=== PATIENT | male | born 1950 | race Caucasian/White ===

== ENCOUNTER 2019-01-13 05:44 | Inpatient (IN) ==
[2019-01-07 13:09] LABS: Basophils # (Auto) 0 K/mcL (0.0-0.3); Basophils % (Auto) 0.4 % (0.0-2.0); Eosinophils # (Auto) 0.4 K/mcL (0.0-0.7); Eosinophils % (Auto) 4.5 % (0.0-7.0); Granulocytes % (Auto) 66.6 % (38.0-78.0); Lymphocytes # (Auto) 1.6 K/mcL (1.5-4.8); Lymphocytes % (Auto) 19.2 % (15.5-49.0); Mean Cell Volume 85.8 fL (80.0-100.0); Monocytes # (Auto) 0.8 K/mcL (0.1-0.9); Monocytes % (Auto) 9.3 % (1.0-12.0); Platelet Count 273 K/mcL (140-440); RBC 4.82 M/mcL (4.50-5.90); Red Cell Distribution Width 13.1 % (11.5-14.5)
[2019-01-07 13:14] LABS: Appearance,Urine CLEAR; Bacteria,Urine 0 /hpf (0); Bilirubin,Urine NEG (NEG); Color,Urine STRAW; Glucose,Urine (UA) >=500 mg/dL (NEG); Leukocyte Esterase,Urine NEG /uL (NEG); Protein,Urine NEG (NEG); Specific Gravity,Urine 1.012 (1.000-1.035); Urine Blood NEG mg/dL (<0.03); Urine RBC < 1 /hpf (0-1); Urine Squamous Epithelial Cell 0 /hpf (0-4); Urine WBC 0 /hpf (0-4); Urobilinogen,Urine NEG (NEG)
[2019-01-07 14:06] LABS: Blood Urea Nitrogen 17 mg/dl (8-23)
[2019-01-07 14:18] LABS: Estimated Average Glucose(eAG) 140 mg/dL; Hemoglobin A1C 6.5 % HGB (4.0-6.0)
[2019-01-13] MEDS ORDERED: CELECOXIB 200 MG CAPSULE PO SCH (06:00)
[2019-01-13] MEDS ORDERED: SCOPOLAMINE 1 PATCH PATCH TOPICAL ONE (06:00)
[2019-01-13] MEDS ORDERED: PREGABALIN 75 MG CAPSULE PO SCH (06:00)
[2019-01-13] MEDS ORDERED: ACETAMINOPHEN 500 MG TABLET PO SCH (06:00)
[2019-01-13] MEDS ORDERED: 0.9 % SODIUM CHLORIDE 9 ML, KETOROLAC 30 MG, ROPIVACAINE HCL/PF 49.5 ML, EPINEPHrine 0.... IJ SCH (06:00)
[2019-01-13] MEDS ORDERED: ceFAZolin 2 GM in DEXTROSE 5% IN WATER 50 ML IV SCH (06:00)
[2019-01-13] MEDS ORDERED: oxyCODONE 10 MG TAB.ER.12H PO SCH (06:00)
[2019-01-13] MEDS ORDERED: TRANEXAMIC ACID 1,000 MG/10 ML VIAL IV ONE ×2 (10:35→12:47)
[2019-01-13] MEDS ORDERED: ONDANSETRON 4 MG/2 ML VIAL IV ONE (10:35)
[2019-01-13] MEDS ORDERED: ePHEDrine 50 MG/ML AMPUL IV ONE (10:35)
[2019-01-13] MEDS ORDERED: MIDAZOLAM 5 MG/5 ML VIAL IV ONE (10:35)
[2019-01-13] MEDS ORDERED: LIDOCAINE HCL/PF 100 MG/5 ML SYRINGE IV ONE (10:35)
[2019-01-13] MEDS ORDERED: DEXAMETHASONE 10 MG/ML VIAL IV ONE (10:35)
[2019-01-13] MEDS ORDERED: ROPIVACAINE HCL/PF 20 ML VIAL IJ ONE (10:35)
[2019-01-13] MEDS ORDERED: PROPOFOL 200 MG/20 ML VIAL IV ONE (10:35)
[2019-01-13] MEDS ORDERED: GENTAMICIN SULFATE 800 MG/20 ML VIAL IR ONE (11:36)
[2019-01-13] MEDS ORDERED: LACTATED RINGERS 1,000 ML IV SCH (12:15)
[2019-01-13] MEDS ORDERED: PROMETHAZINE 25 MG/ML VIAL IV PRN (12:15)
[2019-01-13] MEDS ORDERED: MEPERIDINE 25 MG/ML SYRINGE IV PRN (12:15)
[2019-01-13] MEDS ORDERED: diphenhydrAMINE 50 MG/ML VIAL IV PRN (12:15)
[2019-01-13] MEDS ORDERED: fentaNYL 100 MCG/2 ML VIAL IV PRN (12:15)
[2019-01-13] MEDS ORDERED: IPRATROPIUM/ALBUTEROL 3 ML AMPUL.NEB NEB PRN (12:15)
[2019-01-13] MEDS ORDERED: FLUMAZENIL 0.1 MG/ML ML IV PRN (12:15)
[2019-01-13] MEDS ORDERED: LACTATED RINGERS 250 ML IV PRN (12:15)
[2019-01-13] MEDS ORDERED: NALOXONE HCL 0.4 MG/ML VIAL IV PRN (12:15)
[2019-01-13] MEDS ORDERED: ONDANSETRON 4 MG/2 ML VIAL IV PRN ×2 (12:15→12:47)
[2019-01-13] MEDS ORDERED: BENZOCAINE/MENTHOL 1 LOZENGE PO PRN (12:47)
[2019-01-13] MEDS ORDERED: BISACODYL 10 MG SUPP.RECT PR PRN (12:47)
[2019-01-13] MEDS ORDERED: FLEETS ADULT ENEMA PR PRN (12:47)
[2019-01-13] MEDS ORDERED: ACETAMINOPHEN 325 MG TABLET PO PRN (12:47)
[2019-01-13] MEDS ORDERED: HYDROmorphone 2 MG/ML VIAL IV PRN (12:47)
[2019-01-13] MEDS ORDERED: MAGNESIUM HYDROXIDE 30 ML ORAL.SUSP PO PRN (12:47)
[2019-01-13] MEDS ORDERED: POLYETHYLENE GLYCOL 3350 17 GM PACKET PO PRN (12:47)
[2019-01-13] MEDS ORDERED: TEMAZEPAM 15 MG CAPSULE PO PRN (12:47)
--- NOTE | 2019-01-13 12:47 | Brief Operative Note ---
Date of procedure: 01/13/19 Pre-op diagnosis: Right knee fail attune tka 2016 Post-op diagnosis: same Procedure: right tka complete revision all coomp Grafts/Implants: Yes Anesthesia: LILLYA Surgeon: Guille Bradshaw Loan Consultant: Inocencio Espinoza Estimated blood loss (cc): 100 Tourniquet Time (Minutes): 86 Specimens Removed/Pathology: none sent Condition: stable Disposition: PACU
[2019-01-13] MEDS ORDERED: ALBUTEROL SULFATE 1 PUFF INHALER INH PRN (12:54)
[2019-01-13] MEDS: 0.45 % SODIUM CHLORIDE 1,000 ML IV SCH (13:47)
[2019-01-13] MEDS: 0.9 % SODIUM CHLORIDE 10 ML SYRINGE IV SCH ×2 (14:15→22:12)
--- NOTE | 2019-01-13 14:57 | XRay Report ---
CLINICAL INFORMATION: Post-Op Total Knee COMPARISON: Preoperative x-rays 09/25/2013 FINDINGS: Longstem total knee prostheses is anatomically aligned. No osseous abnormality. Soft tissue swelling - as expected IMPRESSION: Negative Interpreted and Authenticated by: Mailck Peguero 01/13/19
--- NOTE | 2019-01-13 16:38 | Operative Note ---
DATE OF OPERATION: 01/13/2019 PREOPERATIVE DIAGNOSIS: Right knee Attune knee that had loosened and was unstable. POSTOPERATIVE DIAGNOSIS: Right knee Attune knee that had loosened and was unstable. PROCEDURE: Right revision of Attune knee of the tibial base plate and femoral component. All components were revised to [place] components. Complete revision of Attune to a [place] knee. SURGEON: Guille Bradshaw M.D. [place] SYSTEMS ENGINEER: Inocencio Espinoza PA-C. ANESTHESIA: General LMA anesthesia. COMPLICATIONS: None. ESTIMATED BLOOD LOSS: About 100 mL. COMPLICATIONS: None. TOURNIQUET TIME: 86 minutes. BLOOD PRODUCTS GIVEN: None. PATHOLOGY: We did send tissue for fresh frozen which revealed only 1 white blood cell per high power field. We cemented the component with antibiotic-impregnated cement. DESCRIPTION OF PROCEDURE: The patient was brought to the operating room and put to sleep with general LMA anesthesia. Once asleep, the patient had the right leg sterilely prepped and draped in the usual sterile fashion. A timeout was performed, and we confirmed this as the operative site for right knee revision from an Attune to a Manuel knee. We did this by initials, consent form and x-rays. Once done, we placed Ioban over the skin, exsanguinated the leg to 250 pounds of pressure and made a midline incision. We exposed the joint and incised through his prior scar, identified the Attune knee. The patella seemed to track well without purulence. We took tissue and sent it for high powered field, which returned with only 1 white blood cell. We then removed the femoral component and the tibial trial. The rotating platform poly was removed by cutting the polyethylene into the baseplate. The baseplate was removed with some difficulty, but it came out with no cement attached, seemed to be de-bonded. There was no cement on the posterior flanges of the femoral component which could have represented looseness as well. Both these components were removed. Very little bone was sacrificed. We then placed an intramedullary guide elham down the tibia after removing the bony cement that had been placed. This was reamed up for a size 13 stem, and we trialed and tapped into place the tibial baseplate with external rotation appropriate for his anatomy. The femoral component was then cut using the epicondyle axis. External rotation was accomplished fairly easily. We placed +5 wedges distally, +5 wedges posteriorly. We increased the size to a size 7 femoral component, which seemed equally balanced in flexion-extension. With this, we were able to achieve perfect alignment and a constrained liner was placed. This felt very nice, very straight, and gained full motion though this was slightly tighter than what he started with. We cemented into place the long stemmed component. The femoral component had a rotational +6 offset for alignment, and a +5 distal augment, and a +5 posterior augment both medially and laterally. This was cemented into place with a size 14 stem. This seemed to fit very nicely. We then trialed the poly. The appropriate poly was placed, and it was a constrained poly. The patella tracked perfectly. We irrigated thoroughly and then removed any excess cement and closed the midvastus approach with #1 Stratafix x2. Everything fit very nicely. We took the knee through range of motion. The skin was closed with 2-0 Vicryl and adhesive closure. RBH:celeste Job ID: [id number] Doc ID: [id number] Guille Bradshaw MD
[2019-01-13] MEDS: KETOROLAC 15 MG/ML VIAL IV SCH ×2 (18:12→23:57)
[2019-01-13] MEDS: metFORMIN 500 MG TAB.XL.24H PO SCH (18:12)
[2019-01-13] MEDS: ceFAZolin 1 GM VIAL IV SCH (18:40)
[2019-01-13] MEDS: Budesonide/Formoterol Fumarate [Symbicort] 160-4.5 mcg Inhaler INH SCH (20:23)
[2019-01-13] MEDS: TAMSULOSIN 0.4 MG CAPSULE PO SCH (20:23)
[2019-01-13] MEDS: ASPIRIN 325 MG ENTERIC COATED TABLET PO SCH (20:23)
[2019-01-13] MEDS: oxyCODONE/APAP 5/325MG TABLET PO PRN (20:23)
[2019-01-13] MEDS ORDERED: DOCUSATE SODIUM 100 MG CAPSULE PO SCH (21:00)
[2019-01-13] MEDS ORDERED: SENNOSIDES 1 TABLET PO SCH (21:00)
[2019-01-13] MEDS ORDERED: MONTELUKAST 10 MG TABLET PO SCH (21:00)
[2019-01-13] MEDS ORDERED: SIMVASTATIN 20 MG TABLET PO SCH (21:00)
[2019-01-14] MEDS: 0.45 % SODIUM CHLORIDE 1,000 ML IV SCH (00:05)
[2019-01-14] MEDS: ceFAZolin 1 GM VIAL IV SCH (02:29)
[2019-01-14] MEDS: oxyCODONE/APAP 5/325MG TABLET PO PRN ×2 (02:29→08:48)
[2019-01-14] MEDS: KETOROLAC 15 MG/ML VIAL IV SCH (05:36)
[2019-01-14] MEDS: 0.9 % SODIUM CHLORIDE 10 ML SYRINGE IV SCH (05:36)
--- NOTE | 2019-01-14 07:46 | Orthopedic Progress Note ---
Subjective Patient information: Note initiated : 01/14/19 at 7:45 am Service Date, if different from initiated Date: [] Patient: Armen Gonzalez 68 y/o M admitted on 01/13/19 for Right Knee Revision to Longer Stem, Replacement of. Chief Complaint: [Pt is stable this morning on post operative day 1 without any significant concerns or complaints. Patients vital signs have remained stable. Patients dressing is dry and is grossly intact from a neurovascular and motor standpoint. Patients 10 point ROS is otherwise negative. ] Objective Vital signs: Vital Signs Temp Pulse Resp BP BP Pulse Ox 01/14/19 07:32 98.0 F 59 L 14 111/65 96 01/14/19 02:43 94 01/14/19 02:36 97.8 F 75 14 125/66 94 01/14/19 00:00 92 01/13/19 23:54 98.1 F 67 14 128/63 92 01/13/19 20:00 94 01/13/19 19:29 97.3 F 90 22 123/71 92 01/13/19 15:26 111/67 92 01/13/19 14:56 109/66 92 01/13/19 14:26 110/66 90 01/13/19 14:11 115/69 90 01/13/19 13:57 120/72 92 01/13/19 13:30 97.8 F 86 17 129/77 97 01/13/19 13:15 98.2 F 93 H 15 118/65 96 01/13/19 13:10 89 12 123/67 100 01/13/19 13:05 89 8 L 118/63 98 01/13/19 13:00 98.0 F 93 H 20 108/58 98 01/13/19 12:58 98.0 F 102 H 19 114/86 98 Intake and Output 01/13/19 01/14/19 01/14/19 21:59 05:59 13:59 Intake Total 2300 1400 Output Total 975 1175 Balance 1325 225 Intake: IV 1000 Sodium Chloride 0.45% 1,000 ml 1000 @ 100 mls/hr IV .Q10H KIZZY Rx#: [id number] Oral 2300 400 Output: Void Amount 975 1175 Other: Meal Dinner Percent of Meal Consumed 100% Feeding Ability Independent Urine Appearance Clear Clear Urine Color Straw Straw Weight 245 lb 8 oz Intake & Output: Intake & Output 01/13/19 01/14/19 01/14/19 21:59 05:59 13:59 Intake Total 2300 1400 Output Total 975 1175 Balance 1325 225 Weight 245 lb 8 oz Intake: IV 1000 Sodium Chloride 0.45% 1,000 ml 1000 @ 100 mls/hr IV .Q10H KIZZY Rx#: [id number] Oral 2300 400 Output: Void Amount 975 1175 Other: Meal Dinner Percent of Meal Consumed 100% Feeding Ability Independent Urine Appearance Clear Clear Urine Color Straw Straw Incision: Yes healing Incision clean and dry: Yes Dressing: Yes clean Weight bearing status: full Neurological exam IM: Yes motor sensory intact, Yes neurovascular intact Extremities exam IM: Yes Foot pink and warm, Yes neurovascular intact - Labs CBC & BMP: 01/14/19 04:13 01/07/19 11:12 Labs: 01/14/19 01/07/19 04:13 11:13 Hgb 13.6 Hct 34.6 L 41.4 Assessment and Plan (1) History of revision of total knee arthroplasty The patient has been educated regarding dressing care, Physical Therapy recommendations, home exercises, restrictions, and follow up appointments. The patient has had all necessary DME prescribed. The patient has remained relatively stable during their hospital course. Leave Dermabond patch intact until followup Status: Acute
--- NOTE | 2019-01-14 07:49 | Discharge Summary ---
Ortho Discharge - TKA - Patient Instructions Diet: Regular Diet Activity: activity as tolerated, weight bearing as tolerated Total Knee Protocol: For Total Knee: Start ROM RIZWAN with stationary bike or rocking chair. Work on gaining full extension of knee. Posterior dislocation precautions provided. Hip abductor strengthening and gait training instructions provided. Apply Cryocuff as instructed. Dressing Care: May shower in 2 days - Problem Maintenance (1) History of revision of total knee arthroplasty Status: Acute - Follow Up Plan Follow Up Appointments: Guille Bradshaw MD [Physician] - 01/28/19 10:40 am Disposition: Home, Self-Care Prognosis: Good Rehab Potential: Good I certify that the patient requires SNF services: No Overall status at discharge: patient is progressing back to baseline - Orders For Discharge Prescriptions: Aspirin [Ecotrin] 325 mg PO BID #60 tab.ec Docusate Sodium [Colace] 100 mg PO BID #60 cap oxyCODONE/APAP [Percocet 5-325 mg] 1 - 2 tab PO Q4HP PRN #75 tab PRN Reason: Pain Level 3-6
[2019-01-14] MEDS: TAMSULOSIN 0.4 MG CAPSULE PO SCH (08:46)
[2019-01-14] MEDS: metFORMIN 500 MG TAB.XL.24H PO SCH (08:46)
[2019-01-14] MEDS: ASPIRIN 325 MG ENTERIC COATED TABLET PO SCH (08:46)
[2019-01-14] MEDS: Budesonide/Formoterol Fumarate [Symbicort] 160-4.5 mcg Inhaler INH SCH (08:48)
[2019-01-14] MEDS ORDERED: HYDROCHLOROTHIAZIDE 25 MG TABLET PO SCH (09:00)
[2019-01-14] MEDS ORDERED: amLODIPine 10 MG TABLET PO SCH (09:00)
[2019-01-14] MEDS ORDERED: CELECOXIB 100 MG CAPSULE PO SCH (09:00)
[2019-01-14] MEDS ORDERED: LISINOPRIL 20 MG TABLET PO SCH (09:00)
[2019-01-14] MEDS ORDERED: OMEPRAZOLE 20 MG CAPSULE PO SCH (09:00)
--- NOTE | 2019-01-14 11:43 | Surgical Pathology Report ---
HISTOLOGY SPECIMEN MICROSCOPIC DIAGNOSIS SOFT TISSUE, RIGHT KNEE ANTERIOR POUCH, EXCISION: -- SYNOVIUM AND FIBROADIPOSE TISSUE WITH CHRONIC INFLAMMATION. -- NO SIGNIFICANT NEUTROPHILIC INFLAMMATION IDENTIFIED (LESS THAN ONE NEUTROPHIL/hpf). (DMT:kana) INTRAOPERATIVE CONSULTATION FROZEN SECTION DIAGNOSIS ([facility] [place], [place]): FSA) SOFT TISSUE, RIGHT KNEE, ANTERIOR POUCH, EXCISION: -- LESS THAN ONE NEUTROPHIL PER HIGH POWERED FIELD. (DMT:adj) GROSS DESCRIPTION Received fresh for frozen section consultation, labeled right knee anterior pouch, is a 4.5 x 1.5 x 0.7 cm hurd-pink fibrofatty soft tissue fragment. The fragment is serially sectioned and approximately 80% is submitted for frozen section consultation. The tissue is resubmitted as FSA. (DMT:marline) Electronically Signed by: Abdirashid Bunch M.D.
== END 2019-01-14 12:50 | disposition home or self-care (01) | DRG 468 ==
LOC: MEDSUR 05:44
PROVIDERS: ADMIT Orthopaedic Surgery; ATTEND Orthopaedic Surgery

== ENCOUNTER 2019-06-09 07:02 | Inpatient (IN) ==
[2019-06-04 12:16] LABS: Appearance,Urine CLEAR; Bilirubin,Urine NEG (NEG); Color,Urine COLORLESS; Glucose,Urine (UA) NEGATIVE (NEG); Ketones,Urine NEG (NEG); Leukocyte Esterase,Urine NEG /uL (NEG); Nitrate,Urine NEG (NEG); Protein,Urine NEG (NEG); Specific Gravity,Urine 1.005 (1.000-1.035); Urine Blood NEG mg/dL (<0.03); Urobilinogen,Urine NEG (NEG)
[2019-06-04 15:24] LABS: Basophils # (Auto) 0 K/mcL (0.0-0.3); Basophils % (Auto) 0.4 % (0.0-2.0); Eosinophils # (Auto) 0.4 K/mcL (0.0-0.7); Eosinophils % (Auto) 4.1 % (0.0-7.0); Granulocytes % (Auto) 71.3 % (38.0-78.0); Hematocrit 41.9 % (41.0-55.0); Hemoglobin 13.8 g/dL (13.5-16.5); Lymphocytes # (Auto) 1.7 K/mcL (1.5-4.8); Lymphocytes % (Auto) 17.6 % (15.5-49.0); Mean Cell Volume 83.9 fL (80.0-100.0); Mean Corpuscular HGB Conc 32.9 g/dL (31.0-36.0); Mean Platelet Volume 9.2 fL (7.4-10.4); Monocytes # (Auto) 0.6 K/mcL (0.1-0.9); Monocytes % (Auto) 6.6 % (1.0-12.0); Platelet Count 298 K/mcL (140-440); RBC 4.99 M/mcL (4.50-5.90); WBC 9.4 K/mcL (4.5-11.0)
[2019-06-04 15:34] LABS: Blood Urea Nitrogen 14 mg/dl (8-23); Calcium 10.1 mg/dl (8.6-10.4); Carbon Dioxide 27 mmol/L (22-30); Chloride 101 mmol/L (96-108); Glomerular Filtration Rate 70; Glucose 123 mg/dL (70-105)
[2019-06-04 18:44] LABS: Estimated Average Glucose(eAG) 154 mg/dL
[~2019-06-09 07:02] MED LIST: 0.9 % SODIUM CHLORIDE 9 ML, KETOROLAC 30 MG, ROPIVACAINE HCL/PF 49.5 ML, EPINEPHrine 0.... IJ SCH; ACETAMINOPHEN 500 MG TABLET PO SCH; CELECOXIB 200 MG CAPSULE PO SCH; PREGABALIN 75 MG CAPSULE PO SCH; ceFAZolin 2 GM in DEXTROSE 5% IN WATER 50 ML IV SCH; oxyCODONE 10 MG TAB.ER.12H PO SCH
[2019-06-09] MEDS ORDERED: SCOPOLAMINE 1 PATCH PATCH TOPICAL PRN (07:30)
[2019-06-09] MEDS ORDERED: IPRATROPIUM/ALBUTEROL 3 ML AMPUL.NEB NEB PRN ×2 (07:30→11:57)
[2019-06-09] MEDS ORDERED: ePHEDrine 50 MG/ML AMPUL IV ONE (10:55)
[2019-06-09] MEDS ORDERED: KETAMINE 100 MG/ML ML IV ONE (10:55)
[2019-06-09] MEDS ORDERED: ROPIVACAINE HCL/PF 20 ML VIAL IJ ONE (10:55)
[2019-06-09] MEDS ORDERED: LIDOCAINE HCL/PF 100 MG/5 ML SYRINGE IV ONE (10:55)
[2019-06-09] MEDS ORDERED: ONDANSETRON 4 MG/2 ML VIAL IV ONE (10:55)
[2019-06-09] MEDS ORDERED: TRANEXAMIC ACID 1,000 MG/10 ML VIAL IV ONE (10:55)
[2019-06-09] MEDS ORDERED: PROPOFOL 200 MG/20 ML VIAL IV ONE (10:55)
[2019-06-09] MEDS ORDERED: DEXAMETHASONE 10 MG/ML VIAL IV ONE (10:55)
[2019-06-09] MEDS ORDERED: GENTAMICIN SULFATE 800 MG/20 ML VIAL IR ONE (11:23)
[2019-06-09] MEDS ORDERED: fentaNYL 100 MCG/2 ML VIAL IV PRN (11:57)
[2019-06-09] MEDS ORDERED: MEPERIDINE 25 MG/ML SYRINGE IV PRN (11:57)
[2019-06-09] MEDS ORDERED: NALOXONE HCL 0.4 MG/ML VIAL IV PRN (11:57)
[2019-06-09] MEDS ORDERED: diphenhydrAMINE 50 MG/ML VIAL IV PRN (11:57)
[2019-06-09] MEDS ORDERED: BENZOCAINE/MENTHOL 1 LOZENGE PO PRN ×2 (11:57→12:27)
[2019-06-09] MEDS ORDERED: LACTATED RINGERS 250 ML IV PRN (11:57)
[2019-06-09] MEDS ORDERED: ONDANSETRON 4 MG/2 ML VIAL IV PRN ×2 (11:57→12:27)
[2019-06-09] MEDS ORDERED: PROMETHAZINE 25 MG/ML VIAL IV PRN (11:57)
[2019-06-09] MEDS ORDERED: LACTATED RINGERS 1,000 ML IV SCH (12:00)
--- NOTE | 2019-06-09 12:26 | Brief Operative Note ---
Date of procedure: 06/09/19 Pre-op diagnosis: Left knee djd severe Post-op diagnosis: same Procedure: Lefrt knee tka with robot Grafts/Implants: Yes Anesthesia: GETA Complications Description: 06/09/19 12:26 le Surgeon: Guille Bradshaw Atomic Process Engineer: Inocencio Espinoza Estimated blood loss (cc): 100 Tourniquet Time (Minutes): 42 Specimens Removed/Pathology: none sent Condition: stable Disposition: PACU
[2019-06-09] MEDS ORDERED: TRANEXAMIC ACID 1,000 MG/10 ML VIAL IV SCH (12:27)
[2019-06-09] MEDS ORDERED: POLYETHYLENE GLYCOL 3350 17 GM PACKET PO PRN (12:27)
[2019-06-09] MEDS ORDERED: MAGNESIUM HYDROXIDE 30 ML ORAL.SUSP PO PRN (12:27)
[2019-06-09] MEDS ORDERED: ACETAMINOPHEN 325 MG TABLET PO PRN (12:27)
[2019-06-09] MEDS ORDERED: FLEETS ADULT ENEMA PR PRN (12:27)
[2019-06-09] MEDS ORDERED: BISACODYL 10 MG SUPP.RECT PR PRN (12:27)
[2019-06-09] MEDS ORDERED: HYDROmorphone 2 MG/ML VIAL IV PRN (12:27)
[2019-06-09] MEDS ORDERED: ALBUTEROL SULFATE 1 PUFF INHALER INH PRN (12:30)
--- NOTE | 2019-06-09 13:13 | XRay Report ---
CLINICAL INFORMATION: Post-Op Total Knee COMPARISON: None. FINDINGS: Total knee prostheses is anatomically aligned. There is no osseous abnormality. Periarticular soft tissue swelling seen a IMPRESSION: Negative Interpreted and Authenticated by: Malick Peguero 06/09/19
[2019-06-09] MEDS: 0.9 % SODIUM CHLORIDE 10 ML SYRINGE IV SCH ×2 (17:30→22:03)
[2019-06-09] MEDS: LACTATED RINGERS 1,000 ML IV SCH (17:40)
[2019-06-09] MEDS: ceFAZolin 1 GM VIAL IV SCH (17:41)
[2019-06-09] MEDS: metFORMIN 500 MG TAB.XL.24H PO SCH (17:41)
[2019-06-09] MEDS ORDERED: KETOROLAC 15 MG/ML VIAL IV SCH (18:00)
[2019-06-09] MEDS: oxyCODONE/APAP 5/325MG TABLET PO PRN ×2 (19:05→23:56)
[2019-06-09] MEDS: DOCUSATE SODIUM 100 MG CAPSULE PO SCH (19:40)
[2019-06-09] MEDS: TAMSULOSIN 0.4 MG CAPSULE PO SCH (19:40)
[2019-06-09] MEDS: ASPIRIN 325 MG ENTERIC COATED TABLET PO SCH (19:41)
[2019-06-09] MEDS: Budesonide/Formoterol Fumarate [Symbicort 160-4.5 MCG] Inhaler INH SCH (19:44)
[2019-06-09] MEDS ORDERED: TEMAZEPAM 15 MG CAPSULE PO PRN (21:00)
[2019-06-09] MEDS ORDERED: ATORVASTATIN 20 MG TABLET PO SCH (21:00)
[2019-06-09] MEDS ORDERED: SENNOSIDES 1 TABLET PO SCH (21:00)
[2019-06-09] MEDS ORDERED: MONTELUKAST 10 MG TABLET PO SCH (21:00)
[2019-06-10] MEDS: ceFAZolin 1 GM VIAL IV SCH (02:35)
[2019-06-10] MEDS: oxyCODONE/APAP 5/325MG TABLET PO PRN ×2 (03:51→09:51)
[2019-06-10] MEDS: 0.9 % SODIUM CHLORIDE 10 ML SYRINGE IV SCH ×2 (03:54→04:38)
[2019-06-10] MEDS: LACTATED RINGERS 1,000 ML IV SCH (04:37)
[2019-06-10] MEDS: metFORMIN 500 MG TAB.XL.24H PO SCH (07:08)
[2019-06-10] MEDS ORDERED: OMEPRAZOLE 20 MG CAPSULE PO SCH (07:30)
--- NOTE | 2019-06-10 07:47 | Orthopedic Progress Note ---
Subjective Patient information: Note initiated : 06/10/19 at 7:47 am Service Date, if different from initiated Date: [] Patient: Armen Gonzalez 68 y/o M admitted on 06/09/19 for Left Total Knee Arthroplasty Heron . Chief Complaint: [Pt is stable this morning on post operative day 1 without any significant concerns or complaints. Patients vital signs have remained stable. Patients dressing is dry and is grossly intact from a neurovascular and motor standpoint. Patients 10 point ROS is otherwise negative. ] Objective Vital signs: Vital Signs Temp Pulse Resp BP Pulse Ox 06/10/19 04:00 97.8 F 71 16 104/62 91 06/09/19 23:02 97.7 F 88 16 113/67 92 06/09/19 20:00 94 06/09/19 19:56 98.7 F 95 H 16 113/54 94 06/09/19 16:28 95 06/09/19 15:15 85 117/63 95 06/09/19 14:15 77 140/69 92 06/09/19 14:01 78 127/72 94 06/09/19 13:45 90 138/69 92 06/09/19 13:26 100 H 16 130/73 98 06/09/19 13:09 97.1 F 87 18 111/57 96 06/09/19 12:54 98.1 F 92 H 14 97/44 94 06/09/19 12:49 95 H 16 116/51 97 06/09/19 12:44 95 H 20 113/51 96 06/09/19 12:39 97.5 F 87 18 113/56 99 06/09/19 12:35 79 140/64 99 06/09/19 12:34 97 H 10 L 109/58 97 06/09/19 12:05 97.3 F 81 141/66 97 Intake and Output 06/09/19 06/10/19 06/10/19 21:59 05:59 13:59 Intake Total 800 1800 Output Total 900 525 Balance -100 1275 Intake: IV 1000 Lactated Ringers 1,000 ml @ 100 1000 mls/hr IV .Q10H KIZZY Rx#: [id number] Oral 800 800 Output: Urine Catheter Amount 800 Straight 800 Void Amount 100 525 Other: Meal Dinner yoghurt, pepe crackers Percent of Meal Consumed 100% 100% Feeding Ability Independent Independent Urine Color Pale Bright Yellow Urine Odor Normal Normal Weight 244 lb 4.8 oz Intake & Output: Intake & Output 06/09/19 06/10/19 06/10/19 21:59 05:59 13:59 Intake Total 800 1800 Output Total 900 525 Balance -100 1275 Weight 244 lb 4.8 oz Intake: IV 1000 Lactated Ringers 1,000 ml @ 100 1000 mls/hr IV .Q10H KIZZY Rx#: [id number] Oral 800 800 Output: Urine Catheter Amount 800 Straight 800 Void Amount 100 525 Other: Meal Dinner yoghurt, pepe crackers Percent of Meal Consumed 100% 100% Feeding Ability Independent Independent Urine Color Pale Bright Yellow Urine Odor Normal Normal Incision: Yes healing Incision clean and dry: Yes Dressing: Yes clean Weight bearing status: full Neurological exam IM: Yes motor sensory intact, Yes neurovascular intact Extremities exam IM: Yes Foot pink and warm, Yes neurovascular intact - Labs CBC & BMP: 06/10/19 04:36 06/04/19 10:32 Labs: 06/10/19 06/04/19 04:36 09:54 Hgb 13.8 Hct 33.7 L 41.9 Assessment and Plan (1) Hx of total knee arthroplasty The patient has been educated regarding dressing care, Physical Therapy recommendations, home exercises, restrictions, and follow up appointments. The patient has had all necessary DME prescribed. The patient has remained relatively stable during their hospital course. Leave Dermabond patch intact until followup Status: Acute
--- NOTE | 2019-06-10 07:50 | Discharge Summary ---
Ortho Discharge - TKA - Patient Instructions Diet: Regular Diet Activity: activity as tolerated, weight bearing as tolerated Total Knee Protocol: For Total Knee: Start ROM RIZWAN with stationary bike or rocking chair. Work on gaining full extension of knee. Posterior dislocation precautions provided. Hip abductor strengthening and gait training instructions provided. Apply Cryocuff as instructed. Dressing Care: May shower in 2 days Patient Education: Total Knee Replacement (DC) - Problem Maintenance (1) Hx of total knee arthroplasty Status: Acute - Follow Up Plan Follow Up Appointments: Inocencio Espinoza PA-C [Physician Topographic Computator] - 06/24/19 10:40 am Disposition: Home, Self-Care Prognosis: Good Rehab Potential: Good I certify that the patient requires SNF services: No Overall status at discharge: patient is progressing back to baseline - Orders For Discharge Prescriptions: Docusate Sodium [Colace] 100 mg PO BID #60 cap Transmission Status: Pending to [facility] Aspirin [Ecotrin] 325 mg PO BID #60 tab.ec Transmission Status: Pending to [facility] oxyCODONE/APAP [Percocet 5-325 mg] 1 - 2 tab PO Q4HP PRN #75 tab PRN Reason: Pain Level 3-6 Prescription Printed
--- NOTE | 2019-06-10 08:20 | Operative Note ---
DATE OF OPERATION: 06/09/2019 PREOPERATIVE DIAGNOSIS: Left knee degenerative arthritis, severe. POSTOPERATIVE DIAGNOSIS: Left knee degenerative arthritis, severe. PROCEDURE: Left total knee arthroplasty. SURGEON: Guille Bradshaw MD MARINE GEOLOGIST: Inocencio Espinoza PA-C. This provider's expertise and technical skill were required throughout the case. The PA assisted with preoperative coordination, intraoperative retraction, wound closure, dressing and splint application, as well as postoperative documentation and care coordination. ANESTHESIA: General LMA anesthesia. COMPLICATIONS: None. IMPLANTS: A [place] implant with the Heron robot. ESTIMATED BLOOD LOSS: About 100 mL DISPOSITION: To PACU. TOURNIQUET: 250 pounds of pressure for approximately 42 minutes. DESCRIPTION OF PROCEDURE: The patient was brought to the operating room and put to sleep with general LMA anesthesia. Once asleep, the patient had the left leg sterilely prepped and draped in the usual sterile fashion. A timeout was performed confirming the operative site by initials, consent form and x-rays. Preop antibiotics and tranexamic acid were given. A midline incision was made, mid vastus approach performed. Exposing the joint showed severe arthritis, mostly of the medial compartment and to a lesser degree the patellofemoral joint. With this, we used the Heron robot to align the leg and this required two pins above and two pins below the leg. The sensors and arrays were placed and we registered the center of hip rotation, as well as medial and lateral malleoli, as well as intraarticular pins, both femoral and the tibia and then 30 points on the femur and the tibia. We then balanced the knee through both flexion extension which consists of 90 degrees and 15 degrees of flexion. Once perfectly balanced, we readjusted the implants for rotation and alignment of the patient's anatomy. We were then able to make the bony cuts and brought the robot in; it was registered and reregistered, both the tibia and the femur, as we made the cuts. We irrigated thoroughly and removed the bony fragments, preserving the posterior cruciate ligament. We were able to remove any osteophytes. Tibial baseplate was set per robot and then we placed the femoral component. The poly appropriate for the size, I believe was 10 mm. This balanced the knee very nicely through the range of motion restoring a negative 2 degrees of extension and where the patient prior had about 7 degrees of flexion contracture and restored him back to 2 degrees of varus. We irrigated thoroughly and then we prepared the patella and measured approximately 36 mm in size. This seemed to resurface of with an oval patella matching his anatomy the most accurately. This was cut to the depth appropriate, preserving as much thickness of the patella as we could. We were able to irrigate thoroughly and placed the implants as preoperatively planned, per the CT scan. Once these were all done and the bone cement had been placed on the implant and we deflated the tourniquet, keeping the knee at 45 degrees, we the closed the midvastus approach with #1 Stratafix x2 sutures. We closed the skin with Stratafix and 2-0 Vicryl and adhesive closure on the skin layer. We irrigated thoroughly and placed a sterile bandage. The patient tolerated this well without complication. RBH:monae Job ID: [id number] Doc ID: [id number] Guille Bradshaw MD
[2019-06-10] MEDS ORDERED: LISINOPRIL 20 MG TABLET PO SCH (09:00)
[2019-06-10] MEDS ORDERED: CELECOXIB 200 MG CAPSULE PO SCH (09:00)
[2019-06-10] MEDS ORDERED: HYDROCHLOROTHIAZIDE 25 MG TABLET PO SCH (09:00)
[2019-06-10] MEDS ORDERED: amLODIPine 10 MG TABLET PO SCH (09:00)
[2019-06-10] MEDS: TAMSULOSIN 0.4 MG CAPSULE PO SCH (09:55)
[2019-06-10] MEDS: DOCUSATE SODIUM 100 MG CAPSULE PO SCH (09:56)
[2019-06-10] MEDS: ASPIRIN 325 MG ENTERIC COATED TABLET PO SCH (09:57)
[2019-06-10] MEDS: Budesonide/Formoterol Fumarate [Symbicort 160-4.5 MCG] Inhaler INH SCH (09:58)
== END 2019-06-10 13:40 | disposition home or self-care (01) | DRG 470 ==
LOC: MEDSUR 07:02
PROVIDERS: ADMIT Orthopaedic Surgery; ATTEND Orthopaedic Surgery